=== PATIENT | male | born 1955 | race Caucasian/White ===

== ENCOUNTER 2022-06-29 12:48 | Outpatient (REF) | payer OTHER, SELFPAY ==
--- NOTE | ~2022-06-29 | XR_ITS ---
EXAMINATION: XR CHEST CLINICAL INFORMATION: Acute cough. COMPARISON: None available. TECHNIQUE: 2 views of the chest were obtained. FINDINGS: No significant abnormality is noted involving the heart, lungs, mediastinum, bony thorax or soft tissues. XR/XR chest 2V IMPRESSION: No acute cardiopulmonary process.
== END 2022-06-29 12:49 | disposition home or self-care (01) ==
LOC: HO.XRAY 12:48
PROVIDERS: PCP Internal Medicine Medical Oncology; Visit Provider Internal Medicine Medical Oncology
DX: R05.1 Acute cough (principal)
CPT/HCPCS: 71046

== ENCOUNTER 2024-05-27 09:45 | Outpatient (REF) | payer OTHER, SELFPAY ==
[2024-05-27 13:14] LABS: Appearance Urine Cloudy; Color Urine Dark Yellow; Glucose Urine UA Negative (Negative); Leukocyte Esterase Urine Negative (Negative); Nitrite Urine Negative (Negative); PH 5.5 (5.0-9.0); Specific Gravity - Urine >= 1.030 (1.005-1.025); Urine Blood Negative (Negative); Urine Ketones Trace mg/dL (Negative); Urine Protein Trace mg/dL (Neg-Trace)
--- OUTSIDE RECORDS SUMMARY | 2024-05-27 15:20 | XMS_ITS ---
Author Organization Wilmer Santos III, MD Address [address] [place] [address] Care Team Providers Care Disability Hearing Officer Name Role Phone Wilmer Santos Primary Care Provider Allergies Allergen (clinical drug ingredient) Drug/Non Drug Allergy documented on EMR Reaction Allergy Type Onset Date Status Penicillin rash Drug Allergy Active Pollen Pollen Unknown Allergy Active caffeine Caffeine Unknown Drug Allergy Active Seasonale Unknown Drug Allergy Active REASON FOR VISIT noct x 1, beet juice induces discomfort...ua, c and s Medications Medication SIG (Take, Route, Fr equency, Duration) Notes Start Date End Date Status Sertraline HCl 50 MG 1 tablet Orally Once a day Active Multivitamin Adults - as directed Orally Active Social History Tobacco Use: Social History Observation Description Date Details (start date - stop date) Never Smoker NA - NA Sex Assigned At : Social History Observation Description Sex Assigned At Male Tobacco Use/Smoking Question Answer Notes Patient is a nonsmoker Additional Findings: Tobacco Non-User Aggressive non-smoker Vital Signs Temperature 98.1 degrees Fahrenheit 05/28/19 25 Blood pressure systolic 140 mm Hg 05/28/19 25 Blood pressure diastolic 80 mm Hg 025 Heart Rate 67 /min 05/27/2024 Height 68 in 05/27/2024 Weight 165 lbs 05/27/2024 BMI 25.09 kg/m2 05/27/2024 Encounters Encounter Location Date Provider Diagnosis Wilmer Santos III, MD [address] [place] [address] [place] [address] 05/27/2024 Wilmer Santos UTI symptoms R39.9 Assessments Encounter Date Diagnosis (ICD Code) Assessment Notes Treatment Notes Treatment Clinical Notes 05/27/2024 UTI symptoms (ICD-10 - R39.9) Plan Of Treatment Medication Medication Name Sig Start Date Stop Date Notes Sertraline HCl 50 MG 1 tablet Orally Once a day 12/22/2022 Multivitamin Adults - as directed Orally Pending Test Test Name Order Date URINALYSIS (UA) 05/27/2024 Urine Culture 05/27/2024 Next Appt Details Follow Up: 6 Weeks, Reason: OV Provider Name:Wilmer Santos, 07/08/2024 11:00:00 AM, [address] [place] [address] [address], [place], [address], Provider Name:Wilmer Santos, 02/07/2025 02:00:00 PM, [address] [place] [address] [address], [place], [address], Progress Notes * Adriel DUKE BDOB:[birth year] (69 yo M)Acc No.[id number]:05/27/2024 Progress Notes Patient:?Adriel DUKE Provider:?Wilmer Santos MD :1955???Age:69 Y???Sex:Male Hank e:05/27/2024 Address:[facility] [address] [facility] Subjective: * Chief Complaints: * ???1. Noct x 1. 2. beet juic e induces discomfort...ua, c and s. * HPI: ???:?Telehealth?Location of provider rendering services:?{...} [address] [facility] [address] ?Location of patient:?address listed in demographics for today's visit ?Patient identification confirmed using:?Name, ?Telehealth method:?Telephone only. Patient not visible to care provider. ?Consent:?Patient verbally consented to treatment, Patient verbally consented to billing insurance company, Patient informed of any privacy concerns related to method of visit ?Total time spent with patient (mins)?15 * ROS:?General/Constitutional:?pain?only normal aches and pains, only normal aches and pains.?Chills?denies, denies.?Fatigue?admits, admits.?Fever?denies, denies.?ENT:?Decreased hearing?denies, denies.?Respiratory:?Cough?denies, denies.?Cardiovascular:?Chest pain with exertion?denies, denies.?Dyspnea on exertion?denies, denies.?Shortness of breath?denies, denies.?Gastrointestinal:?Constipation?denies, denies.?Decreased appetite?denies, denies.?Diarrhea?denies, denies.?Heartburn?denies, denies.?Nausea?denies, denies.?Rectal bleeding?denies, denies.?Vomiting?denies, denies.?Hematology:?bruising?denies, denies.?petechiae?denies, denies.?Swollen glands?none have been noted, none have been noted.?Genitourinary:?Frequent urination?denies, denies.?Musculoskeletal:?Muscle aches?denies, denies.?Painful joints?denies, denies.?Sciatica?denies, denies.?Weakness?denies, denies.?Skin:?Itching?denies, denies.?Rash?denies, denies.?Skin lesion(s)?denies, denies.?Neurologic:?Difficulty speaking?denies, denies.?Dizziness?denies, denies.?Headache?denies, denies.?Low back pain?denies, denies.?Psychiatric:?Depressed mood?denies, denies.? * Medical History:?HTN (hypert ension), Major depressive disorder, Hyperlipidemia, Penicillin allergy, Tinnitus, Tubular adenoma, Panic disorder, Bipolar disorder, Actinic keratoses, Hyperlipidemia. * Surgical History:?Vasectomy 1985, inguinal hernia repair , excision basal cell carcinoma of nose 09/2003, No history . * Hospitalization/Major Diagno stic Procedure:?No history . * Family History:?Father: dece ased 83 yrs, Sepsis after knee replacement, skin cancer, cancer, diagnosed with Cancer.?Mother: alive 93 yrs, Coronary artery disease, adult-onset diabetes, pacemaker, coronary artery disease, skin cancer, diagnosed with DM, HTN.?1 son(s) , 1 daughter(s) - healthy. .? His father was treated for skin cancer and anemia. He of sepsis after total knee replacement. He had a diagnosis of cancer as well. His mother is alive with hypertension, heart disease and diabetes and a pacemaker. A paternal grandmother of a stroke. The patient has no brothers or sisters but has one healthy daughter and one healthy son. * Social History:?Tobacco Use:?Tobacco Use/Smoking?Patient is a?nonsmoker ?Additional Findings: Tobacco Non-User?Aggressive non-smoker ???He is but has a significant other, leighton, whom he 06/01/19. He works as a dispatcher since 2002. He says this is a high stress job. He has 4 biological grandchildren and 4 step grandchildren. * Medications:?Taking Multivit polanco Adults - Tablet as directed Orally , Taking Sertraline HCl 50 MG Tablet 1 tablet Orally Once a day , Medication List reviewed and reconciled with the patient * Allergies:?Penicillin: rash - Allergy, Caffeine, Pollen, Seasonale. Objective: * Vitals:?Ht: 68, Wt:165, BMI: 25.09, BP:140/80, HR:67, Temp:98.1, Wt-k.84. * Examination: ???General Examination: ?GENERAL APPEARANCE:?pleasant, well nourished, well developed, in no acute distress, calm and relaxed.?HEAD:?atraumatic, normocephalic.?EYES:?eomi, perrla, anicteric, conjugate.?EARS:?normal.?NOSE:?septum intact.?ORAL CAVITY:?normal, unremarkable.?NECK/THYROID:?no jugular venous distention, no carotid bruit, thyroid normal.?LYMPH NODES:?no enlarged lymph nodes,spleen normal.?SKIN:?no suspicious lesions, anicteric.?HEART:?no clicks, gallops, murmurs, or rubs, regular rhythm, S1, S2 normal, no s3, or vascular bruits.?LUNGS:?clear to auscultation .?BREASTS:??no masses palpable bilaterally.?ABDOMEN:?bowel sounds normal, no ascites, no organomegaly, no mass.?RECTAL EXAM:?not examined.?MUSCULOSKELETAL:?extremities unremarkable, no clubbing, cyanosis or edema.?PERIPHERAL PULSES:?normal.?NEUROLOGIC:?alert and oriented, cranial nerves 2-12 grossly intact, deep tendon reflexes 2+ symmetrical, motor strength normal upper and lower extremities, sensory exam intact.?PSYCH:?alert, oriented.? Assessment: * Assessment: 1.?UTI symptoms - R39.9??? Plan: * Treatment: 2.?Others? Continue Sertraline HCl Tablet, 50 MG, 1 tablet, Orally, Once a day;?Continue Multivitamin Adults Tablet, -, as directed, Orally.?? * Follow Up:?6 Weeks (Reason: OV) * Images: * The named appointment provid er may or may not be the originator of this progress note, and it is not deemed complete until electronically signed by the appointment provider. Sign off status: Pending * Provider:?Wilmer Santos MD Date:?05/2024 Generated for Vinod rios/Yodit/Daveitting on:?05/27/2024 03:19 PM EST History and Physical Notes * HPI (History of Present Illness) Category Sub-Category Detail Notes Telehealth Location of [facility] rendering services:: {...} [address] [facility] [address] Location of patient:: address listed in demographics for today's visit Patient identification confirmed using:: Name, Telehealth method:: Telephone only. Valeria ent not visible to care provider. Consent:: Patient verbally c onsented to treatment, Patient verbally consented to billing insurance company, Patient informed of any privacy concerns related to method of visit Total time spent with patient (mins): 15 Examination Category Sub-Category Detail Notes General Examination GENERAL APPEARANCE: pleasant , well nourished, well developed, in no acute distress, calm and relaxed HEAD: atraumatic, normocep halic EYES: eomi, perrla, anicte carola, conjugate EARS: normal NOSE: septum intact NECK/THYROID: no jugular venous di stention, no carotid bruit, thyroid normal HEART: no clicks, gallops, murmurs, or rubs, regular rhythm, S1, S2 normal, no s3, or vascular bruits LUNGS: clear to auscultatio n ABDOMEN: bowel sounds normal, no ascites, no organomegaly, no mass NEUROLOGIC: alert and oriented, cranial nerves 2-12 grossly intact, deep tendon reflexes 2+ symmetrical, motor strength normal upper and lower extremities, sensory exam intact SKIN: no suspicious lesion s, anicteric PERIPHERAL PULSES: normal BREASTS: no masses palpable b ilaterally MUSCULOSKELETAL: extremities unremark able, no clubbing, cyanosis or edema LYMPH NODES: no enlarged lymph no sunni,spleen normal RECTAL EXAM: not examined PSYCH: alert, oriented ORAL CAVITY: normal, unremarkable
--- OUTSIDE RECORDS SUMMARY | 2024-05-27 15:20 | XMS_ITS ---
Author Organization Wilmer Santos III, MD Address [address] [address] Care Team Providers Care Plateman Name Role Phone Wilmer Santos Primary Care Provider [phone] REASON FOR VISIT Follow up Social History Sex Assigned At : Social History Observation Description Sex Assigned At Male Encounters Encounter Location Date Provider Diagnosis Wilmer Santos III, MD [address] [place] [address] [place] [address] 05/22/2024 Wilmer Santos Plan Of Treatment Next Appt Details Provider Name:Wilmer Santos, 07/08/2024 11:00:00 AM, [address] [place] [address] [place], [address], Provider Name:Wilmer Santos, 02/07/2025 02:00:00 PM, [address] [place] [address] [place], [address], Progress Notes * Adriel DUKE BDOB:[birth year] (69 yo M)Acc No.[id number]:05/22/2024 Progress Notes Patient:?Adriel DUKE Provider:?Wilmer Santos MD :1955???Age:69 Y???Sex:Male Hank e:05/22/2024 Address:[address], [place]-[address] Subjective: * Chief Complaints: * ???1. Follow up. * Medical History:? Objective: * Vitals:? Assessment: Plan: * Treatment: * Images: * The named appointment provid er may or may not be the originator of this progress note, and it is not deemed complete until electronically signed by the appointment provider. Sign off status: Pending * Provider:?Wilmer Santos MD Date:?04/28 Generated for Vinod rios/Yodit/Wang on:?05/27/2024 03:20 PM EST
--- OUTSIDE RECORDS SUMMARY | 2024-05-27 15:20 | XMS_ITS | Patient Health Record ---
Author Organization Wilmer Santos III, MD Address [address] [place] [place] [address] Care Team Providers Care Computer Repairer Name Role Phone Wilmer Santos Primary Care Provider Allergies Allergen (clinical drug ingredient) Drug/Non Drug Allergy documented on EMR Reaction Allergy Type Onset Date Status Penicillin rash Drug Allergy Active Pollen Pollen Unknown Allergy Active caffeine Caffeine Unknown Drug Allergy Active Seasonale Unknown Drug Allergy Active Reason For Referral No Information Medications Medication SIG (Take, Route, Fr equency, [...] nonsmoker Additional Findings: Tobacco Non-User Aggressive non-smoker Alcohol Screen Question Answer Notes Did you have a drink contain ing alcohol in the past year? Yes How often did you have a dri nk containing alcohol in the past year? 2 to 4 times a month (2 points) How many drinks did you have on a typical day when you were drinking in the past year? 1 or 2 drinks (0 point) How often did you have 6 or more drinks on one occasion in the past year? Never (0 point) Points 2 Interpretation Negative Problems Problem Type SNOMED Code ICD Code Onset Dates Problem Status W/U Status Risk Notes Problem 952236748 Overweight (BMI 25.0-29.9) (E66.3) Active confirmed He has gained 11 pounds since his last visit. We reviewed her strategy to stabilize his weight and then lose weight at a rate of one half of a pound per week. He seems motivated to do so. Problem 097865785 Mixed hyperlipidemia (E78.2) Active confirmed His lipids have been stable and will be checked periodically. Problem 059769854 Actinic keratosis (L57.0) Active confirmed I have recommended that she see a loading and unloading supervisor to 12 month intervals. Problem 06649914 Essential hypertension (I10) Active confirmed His blood pressure today was normal and at baseline. No change in his regimen was necessary. Problem 68959735 Penicillin allergy (Z88.0) Active confirmed Problem Vitamin D deficiency (46509500) Vitamin D deficiency (E55.9) Active confirmed His vitamin D level was low. He will take 1000 units daily. He prefers to purchase this [id number] er. Problem 72692923 PTSD (post-traumatic stress disorder) (F43.10) Active confirmed He will remain with [facility] and his current counselor. Problem 18802805 Bipolar affective disorder in remission (F31.70) Active confirmed I will rely upon the mental health counselor to recommended treatments. Problem 06350576 Depressive disorder (F32.9) Active confirmed He will rem ain under the care of the mental health professionals with him. He has been dealing. He is not suicidal at this time. Problem Benign prostatic hypertrophy without outflow obstruction (946096095) Benign prostatic hyperplasia, unspecified whether lower urinary tract symptoms present (N40.0) Active confirmed He has been rising from sleep once and sometimes twice a night to urinate. No change in his medication was needed. Problem 059615695 Adenomatous polyp (D36.9) Active confirmed Records of previous biopsies and colonoscopies will be requested. From the history. He gives he should have a colonoscopy at 5 year intervals. Problem [id number] Tinnitus of both ears (H93.13) Active confirmed Vital Signs Heart Rate 67 /min 05/27/2024 Temperature 98.1 degrees Fahrenheit 05/27/2024 Blood pressure diastolic 80 mm Hg 05/27/2024 Height 68 in 05/27/2024 Blood pressure systolic 140 mm Hg 05/27/2024 Weight 165 lbs 05/27/2024 BMI 25.09 kg/m2 05/27/2024 Encounters Encounter Location Date Provider Diagnosis Wilmer Santos III, MD [address] [place] [address] [place] [address] 05/27/2024 Wilmer Santos UTI symptoms R39.9 Wilmer Santos III, MD [address] [place] [address] [place] [address] 06/05/2023 Wilmer Santos Benign prostatic hyperplasia, unspecified whether lower urinary tract symptoms present N40.0 ; Acute URI J06.9 ; Essential hypertension I10 ; Depressive disorder F32.9 ; Bipolar affective disorder in remission F31.70 and Mixed hyperlipidemia E78.2 Wilmer Santos III, MD [address] [place] [address] [place] [address] 02/06/2024 Wilmer Santos Essential hypertensi on I10 ; Benign prostatic hyperplasia, unspecified whether lower urinary tract symptoms present N40.0 ; Mixed hyperlipidemia E78.2 ; Depressive disorder F32.9 ; Bipolar affective disorder in remission F31.70 and Overweight (BMI 25.0-29.9) E66.3 Wilmer Santos III, MD [address] [place] [address] [place] [address] 02/20/2024 Wilmer Santos Essential hypertensi on I10 ; Benign prostatic hyperplasia, unspecified whether lower urinary tract symptoms present N40.0 ; Mixed hyperlipidemia E78.2 ; Depressive disorder F32.9 and Overweight (BMI 25.0-29.9) E66.3 Wilmer Santos III, MD [address] [place] [address] [place] [address] 06/05/2023 Wilmer Santos III, MD [address] [place] [address] [place] [address] 06/07/2023 Wilmer Santos III, MD [address] [place] [address] [place] [address] 10/26/2023 Wilmer Santos Benign prostatic hyperplasia, unspecified whether lower urinary tract symptoms present N40.0 ; Essential hypertension I10 and Mixed hyperlipidemia E78.2 Wilmer Santos III, MD [address] [place] [address] [place] [address] 10/26/2023 Wilmer Santos III, MD [address] [place] [address] [place] [address] 03/04/2024 Wilmer Santos Essential hypertensi on I10 Assessments Encounter Date Diagnosis (ICD Code) Assessment Notes Treat ment Notes Treatment Clinical Notes 05/27/2024 UTI symptoms (ICD-10 - R39.9) 06/05/2023 Benign prostatic hyperplasia, unspecified whether lower urinary tract symptoms present (ICD-10 - N40.0) His PSA was 5.4 and will be followed. We discussed lifestyle modification as well as reducing nocturia. 06/05/2023 Acute URI (ICD-10 - J06.9) He getting will follow a conservative approach with apap and fluids and rest. Here 02/06/2024 Essential hypertension (ICD-10 - I10) His blood pressure was elevated today. He will be rechecked in 2 weeks. If necessary medications will be adjusted. 02/06/2024 Benign prostatic hyperplasia, unspecified whether lower urinary tract symptoms present (ICD-10 - N40.0) His PSA was 5.4 and will be followed. We discussed lifestyle modification as well as reducing nocturia. 02/20/2024 Essential hypertension (ICD-10 - I10) His blood pressure today was normal and at baseline. No change in his regimen was necessary. 02/20/2024 Benign prostatic hyperplasia, unspecified whether lower urinary tract symptoms present (ICD-10 - N40.0) He has been rising from sleep once and sometimes twice a night to urinate. No change in his medication was needed. 03/04/2024 Essential hypertension (ICD-10 - I10) His blood pressure today was normal and at baseline. No change in his regimen was necessary. 06/05/2023 Essential hypertension (ICD-10 - I10) His blood pressures in the normal range at this time and will be observed carefully. 02/06/2024 Mixed hyperlipidemia (ICD-10 - E78.2) His fasting lipid profile shows low risk and his values are in a target ranges. No change in his therapy was needed. 02/20/2024 Mixed hyperlipidemia (ICD-10 - E78.2) His lipids have been stable and will be checked periodically. 10/26/2023 Benign prostatic hyperplasia, unspecified whether lower urinary tract symptoms present (ICD-10 - N40.0) 06/05/2023 Depressive disorder (ICD-10 - F32.9) He will remain under the care of the mental health professionals with him. He has been dealing. He is not suicidal at this time. 02/06/2024 Depressive disorder (ICD-10 - F32.9) He will remain under the care of the mental health professionals with him. He has been dealing. He is not suicidal at this time. 02/20/2024 Depressive disorder (ICD-10 - F32.9) He will remain under the care of the mental health professionals with him. He has been dealing. He is not suicidal at this time. 10/26/2023 Essential hypertension (ICD-10 - I10) 06/05/2023 Bipolar affective disorder in remission (ICD-10 - F31.70) I will rely upon the mental health counselor to recommended treatments. 02/06/2024 Bipolar affective disorder in remission (ICD-10 - F31.70) I will rely upon the mental health counselor to recommended treatments. 02/20/2024 Overweight (BMI 25.0-29.9) (ICD-10 - E66.3) He has gained 11 pounds since his last visit. We reviewed her strategy to stabilize his weight and then lose weight at a rate of one half of a pound per week. He seems motivated to do so. 10/26/2023 Mixed hyperlipidemia (ICD-10 - E78.2) 06/05/2023 Mixed hyperlipidemia (ICD-10 - E78.2) His fasting lipid profile shows low risk and his values are in a target ranges. No change in his therapy was needed. 02/06/2024 Overweight (BMI 25.0-29.9) (ICD-10 - E66.3) He has gained 11 pounds since his last visit. We reviewed her strategy to stabilize his weight and then lose weight at a rate of one half of a pound per week. He seems motivated to do so. Plan Of Treatment Pending Test Test Name Order Date PROFILE, FASTING (COMPREHENSIVE METABOLI C) 10/26/2023 PROFILE, FASTING (COMPREHENSIVE METABOLI C) 07/20/2022 PROFILE, RANDOM (COMPREHENSIVE METABOLIC ) 02/20/2024 LIPID PANEL 07/20/2022 PSA, TOTAL 07/20/2022 PSA, TOTAL+FREE 10/26/2023 CBC w DIFF 07/20/2022 CBC w DIFF 10/26/2023 URINALYSIS (UA) 05/27/2024 XR CHEST 2 VIEW PA & LAT 06/29/2022 VITAMIN D 25-OH TOTAL 07/20/2022 CBC WITH AUTO DIFF 02/20/2024 Lipid Panel 10/26/2023 PSA Free and Total 02/20/2024 Urine Culture 05/27/2024 Next Appt Details Provider Name:Wilmer Carmonarne, 07/08/2024 11:00:00 AM, [address] [place] [address] [address], [place], [address], Provider Name:Wilmer Santos, 02/07/2025 02:00:00 PM, [address] [place] [address] [address], [place], [address], Insurance Providers Payer Name Payer Address Payer Phone Subscriber Number Group Number Insured Name Patient Relationship to Insured Coverage Start Date Coverage End Date [facility] [address] [place], [place] [id number] [phone] [id number] Faby Adriel cochran Self - patient is the insured MEDICARE NGS [address] [place] [place] [address] [id number] Faby Adriel cochran Self - patient is the insured Medical (General) History Medical History History ICD Code HTN (hypertension) I10 Major depressive disorder F32.9 Hyperlipidemia E78.5 penicillin allergy tinnitus tubular adenoma panic disorder bipolar disorder actinic keratoses hyperlipidemia Surgical History Surgery Date(Month/Year) No history excision basal cell carcinoma of nose inguinal hernia repair Vasectomy 1986 Hospitalization History Reason Date(Month/Year) No history
--- OUTSIDE RECORDS SUMMARY | 2024-05-27 15:20 | XMS_ITS ---
Author Organization Wilmer Santos III, MD Address [address] [place] [address] Care Team Providers Care Press Worker Helper Name Role Phone Wilmer Santos Primary Care Provider REASON FOR VISIT Rx Request Medications Medication SIG (Take, Route, Fr equency, Duration) Notes Start Date End Date Status Sertraline HCl 50 MG 1 tablet Orally Onc e a day for 30 days 12/22/2022 Active Social History Sex Assigned At : Social History Observation Description Sex Assigned At Male Encounters Encounter Location Date Provider Diagnosis Wilmer Santos III, MD [address] [place] [address] [place] [address] 03/04/2024 Wilmer Santos Essential hypertensi on I10 Assessments Encounter Date Diagnosis (ICD Code) Assessment Notes Treat ment Notes Treatment Clinical Notes 03/04/2024 Essential hypertension (ICD-10 - I10) His blood pressure today was normal and at baseline. No change in his regimen was necessary. Plan Of Treatment Medication Medication Name Sig Start Date Stop Date Notes Sertraline HCl 50 MG 1 tablet Orally Onc e a day for 30 days 12/22/2022 Next Appt Details Provider Name:Wilmer Santos, 07/08/2024 11:00:00 AM, [address] [place] [address] [place], [address], Provider Name:Wilmer Santos, 02/07/2025 02:00:00 PM, [address] [place] [address] [place], [address], Progress Notes * Adriel DUKE BDOB:[birth year] (68 yo M)Acc No.[id number]:03/04/2024 Patient:?Adriel DUKE :1955???Age:68 Y???Sex:Male Address:[place], [address] * Refills? Refill Sertraline HCl Tablet, 50 MG, Orally, 30 Tablet, 1 tablet, Once a day, 30 days, Refills=11 * true * Date:? Generated for Vinod rios/Yodit/eTransmitting on:?05/27/2024 03:20 PM EST
== END 2024-05-27 09:46 | disposition home or self-care (01) ==
LOC: HO.LNP 09:45
PROVIDERS: Visit Provider Internal Medicine
DX: R39.9 Unspecified symptoms and signs involving the genitourinary system (principal)
CPT/HCPCS: 81003; 87086